=== PATIENT | female | born 1955 | race Two or more races ===

== ENCOUNTER 2020-07-08 10:07 | Outpatient (CLI) | payer OTHER | END 2020-07-08 10:08 | disposition home or self-care (01) | LOC: SONOGRAMA 10:07 → MAMO-SONO 10:15 | PROVIDERS: ATTEND Obstetrics & Gynecology Gynecology | DX: N88.8 Other specified noninflammatory disorders of cervix uteri (principal); N84.1 Polyp of cervix uteri ==

== ENCOUNTER → 2022-08-18 | Outpatient (CLI) | payer OTHER | END | disposition home or self-care (01) | LOC: SONOGRAMA 09:30 | PROVIDERS: ATTEND Obstetrics & Gynecology Gynecology | DX: N84.0 Polyp of corpus uteri (principal) ==